=== PATIENT | male | born 2005 | race Caucasian/White ===

== ENCOUNTER → 2024-09-01 08:51 | Outpatient (REF) | payer OTHER, SELFPAY | LOC: RAD 08:51 | PROVIDERS: ATTENDING PHYSICIAN Orthopaedic Surgery | DX: G54.0 Brachial plexus disorders (principal); M25.512 Pain in left shoulder; G89.29 Other chronic pain | CPT/HCPCS: 93931 ==

== ENCOUNTER → 2024-11-01 14:57 | Outpatient (REF) | payer OTHER, SELFPAY | LOC: HWRAD 14:57 | PROVIDERS: ATTENDING PHYSICIAN Surgery Vascular Surgery; FAMILY PHYSICIAN Family Medicine | DX: G54.0 Brachial plexus disorders (principal) | CPT/HCPCS: 71046 ==

== ENCOUNTER → 2025-01-13 12:57 | Outpatient (REF) | payer OTHER, SELFPAY | LOC: EMG 12:57 | PROVIDERS: ATTENDING PHYSICIAN Surgery Vascular Surgery; FAMILY PHYSICIAN Family Medicine | DX: G54.0 Brachial plexus disorders (principal); R20.0 Anesthesia of skin | CPT/HCPCS: 95886; 95909 ==

== ENCOUNTER → 2025-01-31 10:55 | Outpatient (REF) | payer OTHER, SELFPAY | LOC: PAVMRI 10:55 | PROVIDERS: ATTENDING PHYSICIAN Surgery Vascular Surgery; FAMILY PHYSICIAN Family Medicine | DX: G54.0 Brachial plexus disorders (principal) | CPT/HCPCS: 71552; A9575 ==